=== PATIENT | female | born 1955 | race Caucasian/White ===

== ENCOUNTER → 2020-09-16 | Outpatient (CLI) | payer MEDICARE, OTHER ==
[~2020-09-16] MED LIST: ACET325T14 PO; ASCO500T8 PO; ASPI81TA45 PO; ATOR40TA78 PO; CALC1CAP8 PO; CHOL10003 PO; CLOP75TA PO; CO Q10 LIQUID PO; FEXO180T15 PO; FURO20TA3 PO; LEVO88TA4 PO; LISI2.5T PO; MAGN400T36 PO; METO25TA91 PO; MULT-658 PO; NITR0.4T41 SL; OMEP-110 PO; OXYGEN NAS; SPIR25TA5 PO
[2020-09-16 16:09] LABS: BASOPHILS % (AUTO) 1 % (0-1); EOSINOPHILS % (AUTO) 0 % (1-7); LYMPHOCYTES % (AUTO) 20 % (22-44); MEAN CORPUSCULAR HEMOGLOBIN 28.3 pg (27.0-34.8); MEAN CORPUSCULAR HGB CONC 32.3 g/dL (32.4-35.8); MEAN PLATELET VOLUME 9.8 fL (7.4-10.4); MONOCYTES % (AUTO) 8 % (2-9); NEUTROPHILS % (AUTO) 71 % (42-75); PLATELET COUNT 170 x10^3/uL (130-400); RED BLOOD COUNT 5.25 x10^6/uL (3.82-5.3); RED CELL DISTRIBUTION WIDTH 17.3 % (9.6-15.2)
[2020-09-16 16:15] LABS: MD NO
[2020-09-16 16:16] LABS: ALANINE AMINOTRANSFERASE 53 U/L (12-78); ALBUMIN 3.8 g/dL (3.4-5.0); ANION GAP 6 mmol/L (5-15); CALCIUM 10.2 mg/dL (8.5-10.1); CHLORIDE 100 mmol/L (98-107); INTERNATIONAL NORMALIZED RATIO 1.33 (0.93-1.1); PROTHROMBIN TIME 14.1 Seconds (9.6-11.5)
[2020-09-16 16:18] LABS: ALKALINE PHOSPHATASE 106 U/L (45-117); BILIRUBIN,TOTAL 1.5 mg/dL (0.2-1.0); CREATININE 0.69 mg/dL (0.55-1.02); TOTAL PROTEIN 6.7 g/dL (6.4-8.2)
== END | disposition home or self-care (01) ==
LOC: STAR 14:33
PROVIDERS: ATTEND Obstetrics & Gynecology
DX: Z01.812 Encounter for preprocedural laboratory examination (principal); Z20.822 Contact with and (suspected) exposure to COVID-19; J90 Pleural effusion, not elsewhere classified; R97.8 Other abnormal tumor markers; R97.1 Elevated cancer antigen 125 [CA 125]; R18.8 Other ascites; J98.11 Atelectasis
CPT/HCPCS: 36415; 71046; 80053; 85025; 85610; 85730; 93005; U0003

== ENCOUNTER 2020-09-20 05:36 | Observation (INO) | payer MEDICARE, OTHER ==
[~2020-09-20] VITALS: Ht 157.5 cm; Wt 56.3 kg
[2020-09-20] MEDS ORDERED: CEFOTETAN PMX 2GM/50ML 50 ML IVPB ONE (06:30)
[2020-09-20] MEDS ORDERED: CHLORHEXIDINE 15 ML UDC PO ONE (06:30)
[2020-09-20] MEDS ORDERED: LACTATED RINGERS 1,000 ML IV SCH (06:30)
[2020-09-20] MEDS ORDERED: CHLORHEXIDINE 15 ML UDC ONE (06:35)
[2020-09-20] MEDS ORDERED: FENTANYL PF 250 MCG/5ML ONE (06:37)
[2020-09-20] MEDS ORDERED: MIDAZOLAM 1 MG/ML, 2ML ONE (06:37)
[2020-09-20] MEDS ORDERED: CEFOTETAN 2 GM ONE (06:39)
[2020-09-20] MEDS ORDERED: ONDANSETRON 2MG/ML, 2ML ONE (06:40)
[2020-09-20] MEDS ORDERED: NEOSTIGMINE 1 MG/ML, 10ML ONE (06:40)
[2020-09-20] MEDS ORDERED: DEXAMETHASONE 4 MG/ML, 1ML ONE (06:40)
[2020-09-20] MEDS ORDERED: PROPOFOL 10 MG/ML, 20ML ONE (06:40)
[2020-09-20] MEDS ORDERED: ROCURONIUM 10MG/ML,5ML ONE (06:40)
[2020-09-20] MEDS ORDERED: GLYCOPYRROLATE 0.2MG/1ML, 5ML ONE (06:40)
[2020-09-20 06:46] VITALS: BP 106/65
[2020-09-20] MEDS ORDERED: BUPIVACAINE/PF 0.25% ONE (07:22)
[2020-09-20] MEDS ORDERED: HEPARIN 1,000 UNITS/ML, 10ML ONE (07:23)
[2020-09-20] MEDS ORDERED: EPINEPHRINE 1 MG/ML, 1ML ONE (07:23)
[2020-09-20] MEDS ORDERED: INDOCYANINE GREEN 25 MG VIAL ONE (07:23)
[2020-09-20] MEDS ORDERED: PROMETHAZINE 25 MG/ML, 1ML IVPush PRN (07:30)
[2020-09-20] MEDS ORDERED: LABETALOL 5MG/ML, 20ML IV PRN (07:30)
[2020-09-20] MEDS ORDERED: MEPERIDINE/PF 25MG/0.5ML IVPush PRN (07:30)
[2020-09-20] MEDS ORDERED: morphine SULFATE 10 MG/ML, 1ML IVPush PRN ×2 (07:30→10:00)
[2020-09-20] MEDS ORDERED: hydrALAzine 20 MG/ML, 1ML IV PRN (07:30)
[2020-09-20] MEDS ORDERED: FENTANYL PF 100 MCG/2ML IV PRN (07:30)
[2020-09-20] MEDS ORDERED: HALOPERIDOL 5 MG/ML IV PRN (07:30)
[2020-09-20] MEDS ORDERED: OXYcodone 5 MG/5 ML ORAL.SOL UDC PO PRN (07:30)
[2020-09-20] MEDS ORDERED: HYDROmorphone 1 MG/ML, 1ML INJ IVPush PRN (07:30)
[2020-09-20] MEDS ORDERED: PHENYLEPHRINE 10 MG/ML ONE (07:35)
[2020-09-20] MEDS ORDERED: DIPHENHYDRAMINE 50 MG/ML, 1ML IVPush PRN (10:00)
[2020-09-20] MEDS ORDERED: ONDANSETRON 2MG/ML, 2ML IVPush PRN (10:00)
[2020-09-20] MEDS ORDERED: NITROGLYCERIN SINGLE TAB 0.4 MG SL PRN (10:00)
[2020-09-20] MEDS ORDERED: KETOROLAC 30 MG/1 ML IVPush PRN (10:00)
[2020-09-20] MEDS ORDERED: PROCHLORPERAZINE 5 MG/ML, 2ML IVPush PRN (10:00)
[2020-09-20] MEDS: LABETALOL 5MG/ML, 20ML IVPush SCH ×2 (10:00→16:16)
[2020-09-20] MEDS ORDERED: ACETAMINOPHEN 650 MG/20.3 ML UDC ONE (11:03)
[2020-09-20] MEDS ORDERED: FENTANYL PF 100 MCG/2ML ONE (11:04)
[2020-09-20] MEDS ORDERED: MEPERIDINE/PF 25MG/ML,1ML ONE (11:05)
[2020-09-20] MEDS: ACETAMINOPHEN 325 MG TABLET PO PRN (11:20)
[2020-09-20 12:20] VITALS: BP 115/70
[2020-09-20 13:26] VITALS: BP 105/62
[2020-09-20] MEDS: MAGNESIUM OXIDE 400 MG TABLET PO SCH (16:16)
[2020-09-20] MEDS: OMEPRAZOLE 20 MG CAPSULE.DR PO SCH (16:17)
[2020-09-20] MEDS ORDERED: LISINOPRIL 5 MG TABLET PO SCH (18:00)
[2020-09-20 18:55] VITALS: BP 93/55
[2020-09-20] MEDS ORDERED: METOPROLOL SUCCINATE 25 MG TAB.ER.24H PO SCH (21:00)
[2020-09-20] MEDS ORDERED: ATORVASTATIN 40 MG TABLET PO SCH (21:00)
[2020-09-20 21:30] VITALS: BP 100/63
[2020-09-20 23:23] VITALS: BP 97/63
[2020-09-21 01:51] VITALS: BP 11/70
[2020-09-21] MEDS: LABETALOL 5MG/ML, 20ML IVPush SCH ×2 (02:00→09:03)
[2020-09-21 02:40] VITALS: BP 111/70
[2020-09-21 04:50] VITALS: BP 106/70
[2020-09-21] MEDS: ACETAMINOPHEN 325 MG TABLET PO PRN (05:42)
[2020-09-21] MEDS: OMEPRAZOLE 20 MG CAPSULE.DR PO SCH (05:43)
[2020-09-21 05:51] LABS: BASOPHILS % (AUTO) 0 % (0-1); EOSINOPHILS % (AUTO) 0 % (1-7); LYMPHOCYTES % (AUTO) 6 % (22-44); MEAN CORPUSCULAR HEMOGLOBIN 28.7 pg (27.0-34.8); MEAN CORPUSCULAR HGB CONC 33.1 g/dL (32.4-35.8); MEAN PLATELET VOLUME 9.7 fL (7.4-10.4); MONOCYTES % (AUTO) 6 % (2-9); NEUTROPHILS % (AUTO) 88 % (42-75); PLATELET COUNT 181 x10^3/uL (130-400); RED BLOOD COUNT 4.94 x10^6/uL (3.82-5.3); RED CELL DISTRIBUTION WIDTH 17.7 % (9.6-15.2)
[2020-09-21] MEDS ORDERED: LEVOTHYROXINE 88 MCG TABLET PO SCH (06:00)
[2020-09-21 06:05] LABS: ANION GAP 9 mmol/L (5-15); CALCIUM 8.6 mg/dL (8.5-10.1); CHLORIDE 100 mmol/L (98-107)
[2020-09-21] MEDS: OXYcodone/APAP 5/325MG TABLET PO PRN ×2 (06:54→13:00)
[2020-09-21 07:27] VITALS: BP 103/70
[2020-09-21] MEDS ORDERED: OXYC1TAB14 PO (08:15)
[2020-09-21] MEDS: MAGNESIUM OXIDE 400 MG TABLET PO SCH (09:03)
[2020-09-21 12:02] VITALS: BP 112/70
== END 2020-09-21 13:32 | disposition home or self-care (01) ==
LOC: OR 05:36 → ORIP 09:49 → 4NE 12:22 → DCLOUNGE 09-21 13:16
PROVIDERS: ADMIT Obstetrics & Gynecology; ATTEND Obstetrics & Gynecology
DX: R10.2 Pelvic and perineal pain (principal); R18.8 Other ascites; R97.1 Elevated cancer antigen 125 [CA 125]; J90 Pleural effusion, not elsewhere classified; I11.0 Hypertensive heart disease with heart failure; I50.9 Heart failure, unspecified; E78.5 Hyperlipidemia, unspecified; I73.9 Peripheral vascular disease, unspecified; I25.2 Old myocardial infarction; I25.10 Atherosclerotic heart disease of native coronary artery without angina pectoris; I42.9 Cardiomyopathy, unspecified; G45.9 Transient cerebral ischemic attack, unspecified; E03.9 Hypothyroidism, unspecified; K21.9 Gastro-esophageal reflux disease without esophagitis; Z80.41 Family history of malignant neoplasm of ovary; Z87.891 Personal history of nicotine dependence; Z95.1 Presence of aortocoronary bypass graft; Z80.0 Family history of malignant neoplasm of digestive organs; Z79.899 Other long term (current) drug therapy
CPT/HCPCS: 36415; 58571; 80048; 85025; 86850; 86900; 86923; 88112; 88305; 88307; 88331; 88341; 88342; 88360; G0378; J0171; J1100; J1644; J2175; J2250; J2370; J2405; J2704; J2710; J3010; J7120